=== PATIENT | female | born 1930 | race Caucasian/White ===

== ENCOUNTER 2018-09-24 12:57 | Observation (INO) ==
[2018-09-24] MEDS ORDERED: Acetaminophen 325 MG TABLET PO PRN (18:55)
--- NOTE | 2018-09-24 19:01 | Internal Med History&Physical ---
Date of Encounter: 09/24/18 Time of Encounter: 18:15 Assessment and Plan (1) Falls Current visit: Yes Status: Acute PT and OT evaluations will be done. Orthostatic vital signs will be checked. Further workup be done as needed. Qualifiers: Encounter type: initial encounter Qualified Code(s): W19.XXXA - Unspecified fall, initial encounter (2) Multiple lacunar infarcts Current visit: Yes Status: Acute Consideration for OAC will be given if therapy feels she is a low fall risk. (3) CKD (chronic kidney disease) stage 2, GFR 60-89 ml/min Current visit: Yes Status: Chronic Monitor renal indices. (4) Low vitamin D level Current visit: Yes Status: Acute Vitamin D level was low at 19 on 07/07/2015. Recheck in a.m. (5) Hypophosphatemia Current visit: Yes Status: Acute Phosphorus level was low at 1.9 on 02/22/2015. Recheck in a.m. (6) Hyponatremia Current visit: No Status: Acute Present on most labs since June 2014. 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 (7) Hypertension Current visit: No Status: Chronic Poorly controlled at present with readings above 190 systolic. She will be started on low-dose metoprolol and blood pressure will be monitored. Qualifiers: Hypertension type: essential hypertension Qualified Code(s): I10 - Essential (primary) hypertension Internal Medicine - H&P: HPI Chief complaint: Lightheadedness, hyponatremia Admitted From: Emergency Dept Plans for Post Hospital Care: Home History of present illness: Ms. Pimentel is a 87 year old female who was transferred from [facility] emergency room to [facility] observation bed after she presented to ER with complaints of lightheadedness. She reports she had had 2 falls without significant injury in the past 2 weeks at home due to the feeling of lightheadedness. She did not wish to fall again so came to emergency room. Evaluation showed hyponatremia minimally changed from previous labs. It was felt she should be admitted to observation bed for further workup and treatment. Neurologic history is positive for MRI of brain 09/05/2017 showing chronic lacunar infarcts in the posterior right corpus stratum/right tomlinson radiata as well as posterior left putamen. There was marked cerebral and cerebellar parenchymal volume loss with mild chronic microvascular white matter ischemic changes. She reports she clinically had left arm weakness at that time and had therapy on her arm with some improvement. She denies seizure disorder. Head CT at [facility] today did not show acute pathology. Past Med Surg Social Fam HX - Past Medical History Medical history: hypertension, osteoporosis Psychiatric history: no psych history - Past Surgical History Surgical History: non-contributory Additional surgical history: D&C, hemmorhoidectomy, thumb surgery - Social History Smoking Status: Never smoker Smokeless Tobacco Status: No Alcohol use: none Drug use: none - Family History Mother Adopted: [place]: [place] Age: 87 Family Member Ethnicity: Non- Living Status: Age at : 87 Cause of : cardiac issues Hx Family Cardiac Disorders: Yes Hx Family Respiratory Disorders: No Hx Family Cancer: No Hx Family GI Disorders: No Hx Family Genitourinary Disorders: No Hx Family Endocrine Disorder: No Hx Family Musculoskeletal Disorders: No Hx Family Neuromuscular Disorders: No Hx Family Neurologic Disorders: Yes Hx Family HEENT Disorders: No Hx Family Autoimmune Disorders: No Hx Family Reproductive Disorders: No Hx Family Psychosocial Disorders: No Hx Family Medical Disorders: No Father Adopted: [place]: Nir Age: 68 Family Member Ethnicity: Non- Living Status: Age at : 68 Cause of : CHF Hx Family Cardiac Disorders: Yes Hx Family Respiratory Disorders: No Hx Family Cancer: No Hx Family GI Disorders: No Hx Family Genitourinary Disorders: No Hx Family Endocrine Disorder: No Hx Family Musculoskeletal Disorders: No Hx Family Neuromuscular Disorders: No Hx Family Neurologic Disorders: No Hx Family HEENT Disorders: No Hx Family Autoimmune Disorders: No Hx Family Reproductive Disorders: No Hx Family Psychosocial Disorders: No Hx Family Medical Disorders: No Internal Medicine - H&P: Meds raNITIdine HCl [Zantac] 150 mg PO DAILY 09/05/17 [History] Centrum Silver Women Tablet 1 tab PO DAILY 09/24/18 [History] Allergy/AdvReac Type Severity Reaction Status Date / Time Penicillins Allergy Hives Verified 09/24/18 08:36 All Systems PM: A 10-system review of systems was performed and is negative for pertinent findings except as documented above in the HPI. Review of systems: Gen.: Her weight has been stable at approximately 54 kg since August 2017 hospitalization Cardiovascular: She has history of atrial fibrillation but is not presently on OAC. She reports history of hypertension but does not presently take antihypertensive medication. She denies known CA heart failure DVT or pulmonary embolus. Echocardiogram with saline contrast 09/06/2017 showed LVEF of 60%. There was mild mitral regurgitation and mild aortic regurgitation. The interventricular septum and posterior wall thickness measurements were 1.02 and 0.88 cm respectively. E/A ratio was 0.8. Respiratory: She is a lifelong nonsmoker and denies chronic lung disease GI: She reports hemorrhoids and occasional GERD symptoms. She denies disorders of her liver gallbladder or exocrine pancreas : She denies hematuria dysuria or kidney stones Neurologic: As per history of present illness Endocrine: She reports history of hyperlipidemia. Lipid profile 03/30/2014 showed total/HDL ratio of 2.5. She denies diabetes or thyroid disease Hematology/oncology: She reports history of anemia. She denies internal malignancies or other blood disorders. Psychiatric: She has feelings of depression at times but is not on medication at this time. She denies other mental health diagnosis. [place] skeletal: She has had back pain for approximately 2 weeks. She had remote right thumb surgery. - Constitutional Vitals: Temp Pulse Resp BP Pulse Ox 97.7 F 85 17 196/83 95 09/24/18 18:46 09/24/18 18:46 09/24/18 18:46 09/24/18 18:46 09/24/18 18:46 Exam: Gen.: She is a well-developed well-nourished female sitting comfortably in bed who appears in no acute distress HEENT: Head is atraumatic and normocephalic. Eyes: EOMI. There is no scleral icterus. Mouth: Mucosa is moist. Neck: Supple and nontender. There is no thyromegaly or adenopathy noted. Heart: Irregularly irregular without murmurs or gallops Lungs: No wheezes or crackles are heard. Abdomen: Soft and nontender. No masses or guarding are noted. Extremities: There is no cyanosis edema or clubbing noted. Dorsalis pedis and posterior tibial pulses are trace palpable bilaterally. Neurologic: Mental status: She is talkative and a good historian. Cranial nerves: Smile is symmetric. Forehead wrinkles bilaterally. Tongue protrudes midline. EOMI. Motor: There is no pronator drift. Cerebellar: Finger to nose is intact bilaterally. Skin: Warm and dry
--- NOTE | 2018-09-25 10:30 | Internal Med Progress Note ---
Date of Encounter: 09/25/18 Time of Encounter: 10:23 - Assessment and plan (1) Falls Current Visit: Yes Status: Acute Assessment and plan: September 25. Orthostatic vital signs were unremarkable. Await PT and OT evaluation/intervention. Qualifiers: Encounter type: initial encounter Qualified Code(s): W19.XXXA - Unspecified fall, initial encounter (2) Multiple lacunar infarcts Current Visit: Yes Status: Acute Assessment and plan: September 25. Await therapy input to determine if OAC will be initiated. (3) CKD (chronic kidney disease) stage 2, GFR 60-89 ml/min Current Visit: Yes Status: Chronic Assessment and plan: September 25. Monitor renal indices. (4) Low vitamin D level Current Visit: Yes Status: Acute Assessment and plan: September 25. Vitamin D level pending (5) Hypophosphatemia Current Visit: Yes Status: Acute Assessment and plan: September 25. Phosphorus level 2.6. (6) Hyponatremia Current Visit: No Status: Acute Assessment and plan: September 25. Present on most labs since June 2014. 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 (7) Hypertension Current Visit: No Status: Chronic Assessment and plan: September 25. Improved on metoprolol. Continue present Rx. Qualifiers: Hypertension type: essential hypertension Qualified Code(s): I10 - Essential (primary) hypertension - Subjective Interval history: September 25. She has no new complaints and feels well. She denies pain while sitting at bedside. She denies dyspnea. - Constitutional Vitals: Temp Pulse Resp BP Pulse Ox 98.7 F 70 14 161/78 95 09/25/18 06:39 09/25/18 06:40 09/25/18 06:39 09/25/18 06:40 09/25/18 06:39 Exam: She is resting comfortably in a chair at bedside. Her affect is bright and cheerful. She is appropriate in conversation. I reviewed her medications, vitals, and lab results. Consult Discharge Plan - Plan Referrals: NONE,PCP [Primary Care Provider] - 1 week
[2018-09-25 11:11] LABS: Vitamin B12 355 pg/mL (250-1100); Vitamin D 25 Hydroxy 22 ng/mL (30-80)
[2018-09-26 06:26] VITALS: BP 147/69
--- NOTE | 2018-09-26 11:19 | Discharge Summary ---
Date of Encounter: 09/26/18 Time of Encounter: 11:10 - Discharge Diagnosis (1) Falls Priority: Primary Status: Acute Qualifiers: Encounter type: initial encounter Qualified Code(s): W19.XXXA - Unspecified fall, initial encounter (2) Multiple lacunar infarcts Priority: Secondary Status: Chronic (3) CKD (chronic kidney disease) stage 2, GFR 60-89 ml/min Priority: Secondary Status: Chronic (4) Low vitamin D level Priority: Secondary Status: Acute (5) Hypophosphatemia Priority: Secondary Status: Acute (6) Hyponatremia Priority: Secondary Status: Chronic (7) Hypertension Priority: Secondary Status: Chronic Qualifiers: Hypertension type: essential hypertension Qualified Code(s): I10 - Essential (primary) hypertension Hospital course: Ms. Pimentel is a 87 year old female who was transferred from [facility] emergency room to [facility] observation bed after she presented to ER with complaints of ligh theadedness. She reports she had had 2 falls without significant injury in the past 2 weeks at home due to the feeling of lightheadedness. She did not wish to fall again so came to emergency room. Evaluation showed hyponatremia minimally changed from previous labs. It was felt she should be admitted to observation bed for further workup and treatment. I saw her September 24 and performed the history and physical. PT and OT evaluations were done. She progressed satisfactorily in therapy. It was recommended she have a front wheel walker at discharge for stability. I reviewed the August 2017 brain MRI report with the patient and family. They were unaware it showed multiple lacunar infarcts. I explained additional infarcts may have occurred since the August 2017 scan which would predispose her to additional falls. She has a history of paroxysmal atrial fibrillation and will be started on Xarelto 10 mg daily for CVA prophylaxis. Blood pressure improved significantly with addition of low-dose metoprolol. She will continue this at discharge. Vitamin D level returned slightly low at 22. She will be given a vitamin D supplement at discharge. B12 level was normal at 355. Phosphorus was minimally low at 2.6 and BN peptide slightly elevated at 252. She did not complain of dyspnea. Her PCP can follow up on lab abnormalities. On September 26 she was stable for discharge home. She will follow with her PCP Chrissy Davis CNP within 1 week. Home health services will be ordered. - Time Spent with Patient Total time spent providing and/or coordinating discharge services: - Discharge Medications Prescriptions: New Metoprolol XL (24 HR) Succ [Toprol XL] 25 mg PO DAILY #30 tab.er.24h Rivaroxaban [Xarelto] 10 mg PO 1700 #30 tablet Cholecalciferol (D-3) [Vitamin D] 1,000 unit PO DAILY #30 tablet Continued raNITIdine HCl [Zantac] 150 mg PO DAILY Centrum Silver Women Tablet 1 tab PO DAILY Home Medications: raNITIdine HCl [Zantac] 150 mg PO DAILY 09/05/17 [History] Centrum Silver Women Tablet 1 tab PO DAILY 09/24/18 [History] Cholecalciferol (D-3) [Vitamin D] 1,000 unit PO DAILY #30 tablet 09/26/18 [Rx] Metoprolol XL (24 HR) Succ [Toprol XL] 25 mg PO DAILY #30 tab.er.24h 09/26/18 [Rx] Rivaroxaban [Xarelto] 10 mg PO 1700 #30 tablet 09/26/18 [Rx] Allergies/Adverse Reactions: Allergy/AdvReac Type Severity Reaction Status Date / Time Penicillins Allergy Hives Verified 09/24/18 08:36 Date of admission: 09/24/18 15:22 Primary care physician: Chrissy Davis CLINICAL CONSULTANT Consults: 09/24/18 18:49 Consult to Occupational Therapy [CONS] Routine Comment: Evaluate, develop and implement POC Reason for Consult: Weakness, falls Does patient have active BEDREST order?: No Is patient medically & hemodynamically stable?: Yes Patient assessed for mobility or mobilized this visit?: Yes Consult to Physical Therapy [CONS] Routine Comment: Evaluate, develop and implement POC Reason for Consult: Weakness, falls Does patient have active BEDREST order?: No Is patient medically & hemodynamically stable?: Yes Patient assessed for mobility or mobilized this visit?: Yes - Constitutional Vitals: Temp Pulse Resp BP Pulse Ox 97.6 F 63 16 147/69 95 09/26/18 06:23 09/26/18 06:23 09/26/18 06:23 09/26/18 06:23 09/26/18 06:23 - Patient Status Disposition: Home Health Service - Discharge Instructions Follow Up With: Chrissy Davis, CLINICAL CONSULTANT [Advanced Practice Nurse] - 1 week - Diet and Activity Activity: as per physical therapy Diet: regular diet
--- NOTE | 2018-09-26 11:28 | Physician Discharge Referral ---
Home Health/Hosp Referral Info Transfer to: Home Health Attending Provider: Miguel Provider in Charge Post Discharge: PCP (Chrissy Davis CNP) - Diagnosis (1) Falls Priority: Primary Status: Acute (2) Multiple lacunar infarcts Priority: Secondary Status: Chronic (3) CKD (chronic kidney disease) stage 2, GFR 60-89 ml/min Priority: Secondary Status: Chronic (4) Low vitamin D level Priority: Secondary Status: Acute (5) Hypophosphatemia Priority: Secondary Status: Acute (6) Hyponatremia Priority: Secondary Status: Chronic (7) Hypertension Priority: Secondary Status: Chronic - Respiratory Orders Smoking Cessation: Smoking cessation has been advised. For more information, call the [place] Tobacco Quit Line at 5-365-TSAR-NOW. - Diet/Nutrition Diet/Nutrition Orders: Regular - Activity Activity Orders: Walker - Services Needed Following services are medically necessary services: Nursing, Home Health Aide, Physical Therapy, Occupational Therapy - Transfer Medications Prescriptions: Metoprolol XL (24 HR) Succ [Toprol XL] 25 mg PO DAILY #30 tab.er.24h Cholecalciferol (D-3) [Vitamin D] 1,000 unit PO DAILY #30 tablet Rivaroxaban [Xarelto] 10 mg PO 1700 #30 tablet Home Medications: raNITIdine HCl [Zantac] 150 mg PO DAILY 09/05/17 [History] Centrum Silver Women Tablet 1 tab PO DAILY 09/24/18 [History] Cholecalciferol (D-3) [Vitamin D] 1,000 unit PO DAILY #30 tablet 09/26/18 [Rx] Metoprolol XL (24 HR) Succ [Toprol XL] 25 mg PO DAILY #30 tab.er.24h 09/26/18 [Rx] Rivaroxaban [Xarelto] 10 mg PO 1700 #30 tablet 09/26/18 [Rx] Allergies/Adverse Reactions: Allergy/AdvReac Type Severity Reaction Status Date / Time Penicillins Allergy Hives Verified 09/24/18 08:36 Certification: Further, I certify that my clinical findings support that this patient is homebound (i.e. absences from home require considerable and taxing effort and are for medical reasons or jainism services or infrequently or short duration when for other reasons) because: Homebound Reason: Leaving home requires considerable and taxing effort due to condition (Impaired walking ability from multiple lacunar infarcts.) Attestation: My signature below is to certify that this patient is under my care and that I, or nurse practitioner, or a physician's roofer assistant working with me, has a [id number] encounter with this patient.
== END 2018-09-26 11:45 | disposition home health service (06) ==
LOC: INPPIK
PROVIDERS: ADMIT Internal Medicine; ATTEND Internal Medicine